=== PATIENT | male | born 1980 | race Hispanic/Latino ===

== ENCOUNTER 2019-02-16 20:08 | Emergency (ER) | payer SELFPAY ==
[2019-02-16] MEDS ORDERED: ACETAMINOPHEN 500 MG TAB PO ONE (20:51)
--- NOTE | 2019-02-16 21:04 | Event Note ---
ED Screening Note ED Screening Note: This initial assessment/diagnostic orders/clinical plan/treatment(s) is/are subject to change based on patients health status, clinical progression and re- assessment by fellow clinical providers in the ED. Further treatment and workup at subsequent clinical providers discretion. Patient/guardian urged not to elope from the ED as their condition may be serious if not clinically assessed and managed. Initial orders include: 38yo male states that he was riding a horse that bucked and caused him to hurt his testicles. He further states that urinating and walking is painful. This incident occurred earlier today. He rates the pain a 9 of 10.
[2019-02-16] MEDS ORDERED: MORPHINE 4 MG/1 ML INJ IV ONE (21:18)
[2019-02-16] MEDS ORDERED: ONDANSETRON 4 MG/2 ML INJ IV ONE (21:18)
--- NOTE | 2019-02-16 22:16 | Ultrasound Report ---
US testicular doppler comp INDICATION / CLINICAL INFORMATION: testicle injury. COMPARISON: None available. FINDINGS: Testicular size and echogenicity is normal bilaterally. Doppler imaging shows normal testicular blood flow. The right epididymis is normal. The left epididymis is slightly enlarged and somewhat indistinct. No hydrocele. IMPRESSION: 1. No acute testicular abnormality. 2. Slight prominence of the left epididymis may be due to chronic epididymitis. Signer Name: aSmmy Short MD Signed: 02/16/2019 10:11 PM Workstation Name: [id number]
[2019-02-16] MEDS ORDERED: AZITHROMYCIN 250 MG TAB PO ONE (22:34)
[2019-02-16] MEDS ORDERED: LIDOCAINE-MPF (1%) 10 MG/1 ML VIAL 5 ML INFILTRATI ONE (22:35)
[2019-02-16] MEDS ORDERED: HYDROmorphone 1 MG/1 ML INJ IV ONE (23:06)
[2019-02-16 23:42] LABS: Bilirubin,Urine NEG (Negative); Blood,Urine NEG (Negative); Calcium Oxalate Crystals,Urine 1+; Color,Urine Yellow (Yellow); Protein,Urine <15 mg/dL mg/dL (Negative); Urobilinogen,Urine < 2.0 mg/dL (<2.0)
--- NOTE | 2019-02-17 00:40 | Emergency Department Report ---
<VLADIMIR BOWMAN - Last Filed: 02/17/19 01:05> ED Male HPI - General Chief complaint: Urogenital-Male Stated complaint: GROIN PAIN Time Seen by Provider: 02/16/19 21:20 Source: patient Mode of arrival: Ambulatory Limitations: No Limitations - History of Present Illness Initial comments: This is a 38-year-old male nontoxic, well nourished in appearance, no acute signs of distress presents to the ED with c/o of right testicular pain after being hit by a horse. Patient denies any swelling. Deneis any penile discharge. Patient denies any penile ulcers or lesions. Patient denies any nausea, vomiting, chest pain, shortness of breathe, fever, chills, headache, back pain, numbness, tingling, stiff neck. Patient denies any urinary symptoms. Patient denies any allergies or PMH. MD Complaint: testicle pain -: days(s) (1) Location: right testicle Radiation: none Severity: mild Severity scale (0 -10): 8 Quality: aching Consistency: constant Improves with: none Worsens with: none denies other symptoms. denies: discharge, swelling, mass, rash, urinary retention, blood in urine, dysuria, fever, nausea/vomiting, incontinence - Related Data Previous Rx's Medication Instructions Recorded Last Taken Type traMADol [Ultram 50 MG tab] 50 mg PO Q6HR PRN #12 tablet 02/17/19 Unknown Rx Allergies Allergy/AdvReac Type Severity Reaction Status Date / Time No Known Allergies Allergy Unverified 02/16/19 20:13 ED Review of Systems Constitutional: denies: chills, fever Eyes: denies: eye pain, eye discharge, vision change ENT: denies: ear pain, throat pain Respiratory: denies: cough, shortness of breath, wheezing Cardiovascular: denies: chest pain, palpitations Endocrine: no symptoms reported Gastrointestinal: denies: abdominal pain, nausea, diarrhea Genitourinary: testicular pain. denies: urgency, dysuria Musculoskeletal: denies: back pain, joint swelling, arthralgia Skin: denies: rash, lesions Neurological: denies: headache, weakness, paresthesias Psychiatric: denies: anxiety, depression Hematological/Lymphatic: denies: easy bleeding, easy bruising ED Past Medical Hx - Past Medical History Previous Medical History?: No - Surgical History Past Surgical History?: Yes Hx Appendectomy: Yes (2002) Additional Surgical History: L foot sx 2017 - Social History Smoking Status: Never Smoker Substance Use Type: Alcohol - Medications Home Medications: Home Medications Medication Instructions Recorded Confirmed Last Taken Type traMADol [Ultram 50 MG tab] 50 mg PO Q6HR PRN #12 tablet 02/17/19 Unknown Rx ED Physical Exam - General Limitations: No Limitations General appearance: alert, in no apparent distress - Head Head exam: Present: atraumatic, normocephalic - Neck Neck exam: Present: normal inspection, full ROM - exam: Present: testicular tenderness. Absent: urethral discharge, scrotal swelling, vertical testicular lie, circumcision External exam: Present: normal external exam. Absent: erythema, swelling, lesions, lacerations, ecchymosis, bleeding - Extremities Exam Extremities exam: Present: normal inspection, full ROM - Back Exam Back exam: Present: normal inspection, full ROM. Absent: tenderness, CVA tenderness (R), CVA tenderness (L), muscle spasm, paraspinal tenderness, vertebral tenderness, rash noted - Neurological Exam Neurological exam: Present: alert, oriented X3, normal gait - Psychiatric Psychiatric exam: Present: normal affect, normal mood - Skin Skin exam: Present: warm, dry, intact, normal color. Absent: rash ED Course - Reevaluation(s) Reevaluation #1: 02/17/19 00:59 Patient is speaking in full sentences with no signs of distress noted. ED Medical Decision Making - Medical Decision Making There is external male that presents with right testicular contusion as well as epididymitis. Patient is stable and was examined by me. Ultrasound Doppler has been obtained and dictated by radiologist with findings of epididymitis. Due to this finding patient received Rocephin and azithromycin. Urine has been obtained. Urine cultures pending. Gonorrhea and Chlamydia also sent off. Urine is clear. Patient currently is stable with pain on the control. Patient was instructed to Follow-up with a primary care doctor in 3-5 days or if symptoms worsen and continue return to emergency room as soon as possible. At time of discharge, the patient does not seem toxic or ill in appearance. No acute signs of distress noted. Patient agrees to discharge treatment plan of care. No further questions noted by the patient. ED Disposition Clinical Impression: Epididymitis Contusion of testicle Qualifiers: Encounter type: initial encounter Qualified Code(s): S30.22XA - Contusion of scrotum and testes, initial encounter Disposition: -01 TO HOME OR SELFCARE Is pt being admited?: No Does the pt Need Aspirin: No Condition: Stable Instructions: Epididymitis (ED) Additional Instructions: Follow-up with a primary care doctor in 3-5 days or if symptoms worsen and continue return to emergency room as soon as possible. Do not operate any machinery while taking Tramadol as this may cause drowsiness. Prescriptions: traMADol [Ultram 50 MG tab] 50 mg PO Q6HR PRN #12 tablet PRN Reason: Pain Referrals: PRIMARY CARE, [Primary Care Provider] - 3-5 Days KRISTIN HARDWICK MD [Staff Physician] - 3-5 Days [facility] [Outside] - 3-5 Days [facility] [Outside] - 3-5 Days Forms: Work/School Release Form(ED), STI Treatment and Prevention <COOKIE LAGOS - Last Filed: 02/19/19 20:05> ED Review of Systems ROS: Stated complaint: GROIN PAIN Other details as noted in HPI ED Course Vital Signs 02/16/19 02/16/19 02/16/19 20:18 21:06 21:17 Temperature 98.3 F Pulse Rate 87 86 Respiratory 18 16 17 Rate Blood Pressure 168/109 Blood Pressure 143/92 [Right] O2 Sat by Pulse 100 97 Oximetry 02/16/19 02/17/19 23:25 01:19 Temperature Pulse Rate 80 72 Respiratory 20 16 Rate Blood Pressure Blood Pressure 143/92 131/79 [Right] O2 Sat by Pulse 98 98 Oximetry ED Medical Decision Making - Radiology Data Radiology results: report reviewed US testicular doppler comp INDICATION / CLINICAL INFORMATION: testicle injury. COMPARISON: None available. FINDINGS: Testicular size and echogenicity is normal bilaterally. Doppler imaging shows normal testicular blood flow. The right epididymis is normal. The left epididymis is slightly enlarged and somewhat indistinct. No hydrocele. IMPRESSION: 1. No acute testicular abnormality. 2. Slight prominence of the left epididymis may be due to chronic epididymitis - Differential Diagnosis hematoma, torsion, infection Critical Care Time: No Critical care attestation.: If time is entered above; I have spent that time in minutes in the direct care of this critically ill patient, excluding procedure time.
[2019-02-17 01:20] VITALS: BP 131/79
== END 2019-02-17 01:20 | disposition home or self-care (01) ==
LOC: EDSEX → ED 20:08
DX: S30.22XA Contusion of scrotum and testes, initial encounter (principal); N45.1 Epididymitis; Z90.89 Acquired absence of other organs; X58.XXXA Exposure to other specified factors, initial encounter; Y93.89 Activity, other specified; Y92.89 Other specified places as the place of occurrence of the external cause; Y99.8 Other external cause status
CPT/HCPCS: 81001; 87086; 87591; 93975; J0696; J1170; J2270; J2405; 96372; 96374; 96375